=== PATIENT | female | born 1995 | race Caucasian/White ===

== ENCOUNTER 2017-06-04 15:35 | Emergency (ER) | payer OTHER ==
[~2017-06-04] VITALS: Ht 162.6 cm; Wt 55.5 kg
[2017-06-04 15:59] VITALS: BP 111/67; PULSE 117; RESP 21; O2SAT 98
[2017-06-04 16:31] LABS: APPEARANCE,URINE CLEAR (CLEAR,HAZY); COLOR,URINE YELLOW (YELLOW); OCCULT BLOOD,URINE TRACE (NEGATIVE); PH,URINE 5.5 (5.0-8.0); UROBILINOGEN,URINE NORMAL (NORMAL)
[2017-06-04] MEDS ORDERED: 0.9% Sodium Chloride 1,000 ML IV ONE (16:55)
--- NOTE | 2017-06-04 17:08 | ED.REPORT ---
HPI-General Illness Date of Service Jun 04, 2017 ED Provider: Melani Leonard MD 21 y/o 12 weeks female () with no other reported hx presents to the ED complaining of rapid heart rate for the last 3 weeks. The pt states her resting heart rate is 125. Today, however, it went up to 160 as she was walking around. At the same time, she also began experiencing shortness of breath, lightheadedness and nausea. She also complains of feeling hot often. She states her heart rate typically rises when she stands up and walks around and she has not noticed any other modifying factors. The pt denies fever, chills, cough, lower extremity edema, vomiting, change in appetite, weight loss and hair fall. The pt also denies dyspnea in the ED and has not had it with other episodes of tachycardia. She quit smoking about 2 months ago. Nursing Notes Stated Complaint: ELEVATED HEART RATE/12 WKS Chief Complaint: & Delivery Nursing Notes Reviewed: Yes Allergies: Coded Allergies: No Known Allergies (Unverified , 06/04/17) General Time Seen by MD: 16:52 Chief Complaint Other (rapid heart rate) Hx Obtained From: Patient Arrived By: Walk-in Onset Occurred: More than a week ago... (3 weeks) Symptom Duration: Waxes and wanes Severity: Current: No pain currently Severity: Maximum: No pain Recent Healthcare: Recent doctor visit Similar Sx Previous: No Past Medical History Past Medical History (06/04/17) Past Surgical History none reported Smoking History Former Smoker Social History Drug Use: THC Ambulatory Status Independent Review of Systems Reports: rapid heart rate Denies: change in appetite Denies: weight loss Denies: hair fall Full Review of Systems Constitutional: Denies: Chills, Fever Respiratory: Reports: Shortness of breath, Denies: Non-productive cough Cardiovascular: Denies: Edema GI: Reports: Nausea, Denies: Vomiting Neurologic: Reports: Lightheaded Complete sys rev & neg: except as marked. Physical Exam Vital Signs Vital Signs Date Time Temp Pulse Resp B/P Pulse Ox O2 Delivery O2 Flow Rate FiO2 06/04/17 19:26 80 12 104/59 99 Room Air 06/04/17 17:48 110 24 113/78 97 Room Air 06/04/17 15:59 36.8 117 21 111/67 98 Room Air Initial VS: Reviewed Head / Eyes: Atraumatic, Normocephalic Neck: Supple, Non-tender, Full range of motion Respiratory: Breath sounds normal, Clear to auscultation, No respiratory distress Extremities: Vascular intact, Neuro intact, No swelling, No tenderness Skin: Warm, Dry, No cyanosis Neurologic: Alert, Oriented, Nonfocal General/Constitutional: Awake, Alert, No acute distress, Cooperative Cardiovascular: Regular rhythm, Heart sounds NL, No murmurs, No rubs Heart Rate / Rhythm: Positive: Tachycardia Interpretation & Diagnostics Lab Results Interpretation Result Diagram: 06/04/17 1640 06/04/17 1640 Test 06/04/17 16:16 06/04/17 16:40 Urine Color Yellow (YELLOW) Urine Appearance Clear (CLEAR,HAZY) Urine pH 5.5 (5.0-8.0) Urine Specific [place] 1.020 (1.003-1.035) Urine Protein Negativemg/dL (NEG,TRACE) Urine Glucose (UA) Negativemg/dL (NEGATIVE) Urine Ketones Negativemg/dL (NEGATIVE) Urine Occult Blood Trace (NEGATIVE) Urine Nitrite Negative (NEGATIVE) Urine Bilirubin Negative (NEGATIVE) Urine Urobilinogen Normalmg/dL (NORMAL) Urine Leukocyte Esterase Negative (NEGATIVE) Urine RBC 3-10/hpf (0-2) Urine WBC 0-5/hpf (0-5) Urine Epithelial Cells Moderate/hpf (NONE-MOD) Urine Crystals None seen (NONE SEEN) Urine Bacteria Few/hpf (NONE-FEW) Urine Hyaline Casts None/lpf (NONE) Urine Granular Casts None seen (NONE SEEN) Urine Waxy Casts None seen (NONE SEEN) Urine Red Blood Cell Casts None seen (NONE SEEN) Urine White Blood Cell Casts None seen (NONE SEEN) Urine Mucus None seen (None Seen) Urine Trichomonas None seen (NONE SEEN) Urine Yeast None (NONE SEEN) Urinalysis Comment None Urine Culture Reflexed Not indicated White Blood Count 9.7th/mm3 (3.8-10.1) Red Blood Count 4.10mil/mm3 (3.90-5.20) Hemoglobin 11.5g/dL (12.0-15.6) Hematocrit 34.1% (35.0-46.0) Mean Corpuscular Volume 83.2fL (81-100) Mean Corpuscular Hemoglobin 28.0pg (27.0-35.0) Mean Corpuscular Hemoglobin Concent 33.7% (32.0-37.0) Red Cell Distribution Width 13.1% (12.3-15.4) Platelet Count 288bil/L (150-400) Neutrophils (%) (Auto) 68.1% (40-74) Lymphocytes (%) (Auto) 21.3% (14-46) Monocytes (%) (Auto) 9.4% (4-12) Eosinophils (%) (Auto) 0.7% (0-5) Basophils (%) (Auto) 0.2% (0-3) Sodium Level 137mEq/L (134-144) Potassium Level 3.8mEq/L (3.5-5.2) Chloride Level 101mEq/L (97-108) Carbon Dioxide Level 20mmol/L (18-29) Blood Urea Nitrogen 15mg/dL (6-20) Creatinine 0.49mg/dL (0.57-1.00) Estimat Glomerular Filtration Rate 233mL/min (>59) Glucose Level 107mg/dL (60-99) Calcium Level 9.5mg/dL (8.5-10.1) Magnesium Level 2.0mg/dL (1.6-2.6) Total Bilirubin 0.2mg/dL (0.0-1.2) Aspartate Amino Transf (AST/SGOT) 15U/L (0-50) Alanine Aminotransferase (ALT/SGPT) 9U/L (0-32) Alkaline Phosphatase 46U/L (25-150) Total Protein 6.9g/dL (6.4-8.4) Albumin 3.9g/dL (3.4-5.0) Thyroid Stimulating Hormone (TSH) 2.580uIU/mL (0.450-4.500) HCG Beta Subunit 93972gWW/mL Hold [place] Top Tube Received (Received) ECG Interpretation ECG Interpretation: Normal sinus rhtyhm. Rate 94. Time: 16:24 Interpreted by: ED physician X-Ray Chest Interpretation Chest Xray Interpretation: IMPRESSION: 1. No acute cardiopulmonary disease. Dictated by: Bill Rios M.D. on 06/04/2017 at 19:26 Approved by: Bill Rios M.D. on 06/04/2017 at 19:29 View: Portable, 1 view Interpretation / Wet Read by: Interpret - Radiologist Re-Eval/Medical Decision Med Decision/Clinical Course The patient presented with tachycardia into the 160s. While in the emergency department at time she had sinus tachycardia but no other dysrhythmias were seen. Evaluation here was unremarkable and she was told to follow-up with her primary care for Holter monitor. With the patient's usual tachycardia she has not had any respiratory symptoms. The patient consistently stayed around the 80s to low 100 100s. A partial list of differential diagnoses considered were cardiomyopathy, pneumonia, pulmonary embolus, hyperthyroid, dehydration, electrolyte abnormality, and sepsis. Time of Eval: 19:34 Patient Status: Condition improved Re-Evaluation/Progress Note: Rechecked pt. Discussed lab results, imaging results, diagnosis and plan to discharge. Pt understands and agrees with the plan. F/U instructions and RTER warning given. All questions addressed. Consultation : Referral / Consult Name: Jessica Cuevas MD Call Returned at: 18:56 Note: Dr. Cuevas, PODIATRY TEACHER, does not think her sx are related to . Discharge & Departure Primary Impression: Palpitations Disposition: Home Discharge Condition All VS Reviewed: Yes Condition: Stable Patient Instructions: Heart Palpitations (ED) Additional Instructions: Thank you for entrusting us with your care today. You have been in sinus rhythm in the emergency department. You need to be on a Holter monitor to see what rhythm you're in. Please follow up with your performance improvement manager or primary care provider for further evaluation. Return to the emergency department in case of increased palpitations, chest pain or any new or worsening symptoms. Referrals: Sammie Kraft PA-C (PCP) [facility] Attestation Portions of this note were transcribed by Francisco Garza. I, , personally performed the history, physical exam and medical decision- making;I reviewed and confirmed the accuracy of the information in the transcribed note. Signed by Silke Pichardo. 06/04/17 19:48 copies to: Sammie Kraft PA-C, Jena M MD Jun 04, 2017 17:08 Francisco Garza Jun 04, 2017 19:05
[2017-06-04 17:30] LABS: BASOPHILS % (AUTO) 0.2 % (0-3); EOSINOPHILS % (AUTO) 0.7 % (0-5); MONOCYTES % (AUTO) 9.4 % (4-12); Mean Corpuscular Volume 83.2 fL (81-100); NEUTROPHILS % (AUTO) 68.1 % (40-74); Platelet Count 288 bil/L (150-400)
[2017-06-04 17:48] VITALS: BP 113/78; PULSE 110; RESP 24; O2SAT 97
[2017-06-04 19:26] VITALS: BP 104/59; PULSE 80; RESP 12; O2SAT 99
--- NOTE | 2017-06-04 19:30 | DRSVH ---
PROCEDURE: X-RAY CHEST ONE VIEW, PORTABLE ([id number]) INDICATIONS: tachycardia TECHNIQUE: One view of the chest was acquired. COMPARISON: 12/27/12. FINDINGS: Surgical changes and devices: None. Lungs and pleura: No pleural effusions or pneumothorax. There are paired nodular opacities bilatera lly compatible with nipple shadows. Lungs are otherwise clear. Mediastinum: Mediastinal contours appear normal. Heart size is normal. Bones and chest wall: No suspicious bony lesions. Overlying soft tissues appear unremarkable. IMPRESSION: 1. No acute cardiopulmonary disease. Dictated by: Bill Rios M.D. on 06/04/2017 at 19:26 Approved by: Bill Rios M.D. on 06/04/2017 at 19:29
== END 2017-06-04 19:45 | disposition home or self-care (01) ==
LOC: SED 15:35
DX: O26.891 Other specified pregnancy related conditions, first trimester (principal); R00.2 Palpitations; Z3A.12 12 weeks gestation of pregnancy; Z87.891 Personal history of nicotine dependence
CPT/HCPCS: 36415; 71010; 80053; 81000; 83735; 84443; 84702; 85025; 93005; 99285; J7030